=== PATIENT | male | born 1945 | race Caucasian/White ===

== ENCOUNTER 2017-12-26 10:28 | Day surgery (SDC) | payer MEDICARE, BC ==
[~2017-12-26] VITALS: Ht 172.7 cm; Wt 94.1 kg
[~2017-12-26 10:28] MED LIST: ABAC300; ACID REDUCER20 MG PO; ALPR.5 PO; Abilify2 MG PO; Abilify5 MG PO; BECL25NI; BRIM.15SO BOTHEYES; BRIM.15SO OD; BUPR150ER PO; BUPR75; CEFP500 PO; CLON1 PO; Cialis2.5 MG; DICY20 PO; DIPATR PO; FLUSAL2505 INH; Flomax0.4 MG; GABA100 PO; GUANFACINE; GUANFACINE PO; METHOTREXA25 MG/1 M8 IM; METO10 PO; MIRT30 PO; NEBI5 PO; PREG150 PO; PRIM50 PO; PROM25 PO; SELENIUM SUL; TIMO.25OPS OU; TRAACE PO; TRAM50 PO
== END 2017-12-26 12:48 | disposition home or self-care (01) ==
LOC: ORSCSDS 10:28
PROVIDERS: Student in an Organized Health Care Education/Training Program
PROC: 0DB48ZX Excision of Esophagogastric Junction, Via Natural or Artificial Opening Endoscopic, Diagnostic (ICD-10-PCS; principal; 2017-12-26 11:45)
PROC: 0DB68ZX Excision of Stomach, Via Natural or Artificial Opening Endoscopic, Diagnostic (ICD-10-PCS; principal; 2017-12-26 11:45)
DX: K21.9 Gastro-esophageal reflux disease without esophagitis (principal); R13.10 Dysphagia, unspecified; K29.70 Gastritis, unspecified, without bleeding; K44.9 Diaphragmatic hernia without obstruction or gangrene; I10 Essential (primary) hypertension; J44.9 Chronic obstructive pulmonary disease, unspecified; Z99.81 Dependence on supplemental oxygen; Z87.891 Personal history of nicotine dependence; Z79.899 Other long term (current) drug therapy
CPT/HCPCS: 88305; 88312; 88342

== ENCOUNTER 2018-09-26 13:36 | Emergency (ER) | payer MEDICARE, BC ==
[~2018-09-26] VITALS: Ht 172.7 cm; Wt 96.2 kg
[2018-09-26 14:29] LABS: BASOPHILS ABSOLUTE AUTO 0.07 K/mm3 (0.00-0.23); BASOPHILS PERCENT AUTO 1 % (0-2); EOSINOPHILS ABSOLUTE AUTO 0.14 K/mm3 (0.00-0.68); EOSINOPHILS PERCENT AUTO 1 % (0-6); Hematocrit 50.4 % (37.0-53.0); Hemoglobin 16.7 g/dL (13.5-17.5); IMMATURE GRAN ABSOLUTE AUTO 0.03 K/mm3 (0.00-0.10); IMMATURE GRAN PERCENT AUTO 0 % (0-1); LYMPHOCYTES ABSOLUTE AUTO 1.24 K/mm3 (0.84-5.20); LYMPHOCYTES PERCENT AUTO 11 % (21-46); MONOCYTES ABSOLUTE AUTO 0.76 K/mm3 (0.16-1.47); MONOCYTES PERCENT AUTO 7 % (4-13); Mean Corpuscular HGB 33.4 pg (26.0-34.0); Mean Corpuscular HGB Conc 33.1 g/dL (31.5-36.5); Mean Corpuscular Volume 101 fL (80-100); Mean Platelet Volume 9.7 fL (9.1-12.4); NEUTROPHILS ABSOLUTE AUTO 9.07 K/mm3 (1.96-9.15); NEUTROPHILS PERCENT AUTO 80 % (41-73); Platelet Count 242 K/mm3 (150-400); RDW Coefficient Variation 13.3 % (11.7-14.2); RDW Standard Deviation 50.4 fL (35.1-46.3); White Blood Cell Count 11.31 K/mm3 (4.00-11.30)
[2018-09-26 14:36] LABS: Alanine Aminotransfer (ALT/SGP 32 U/L (12-78); Albumin, Blood 4.2 g/dL (3.4-5.0); Alk Phos 86 U/L (50-136); Anion Gap 11 mmol/L (6-16); Aspartate Aminotrans (AST/SGOT 25 U/L (12-37); Bilirubin, Total 0.4 mg/dL (0.1-1.0); Blood Urea Nitrogen 12 mg/dL (8-24); Bun/Creatinine Ratio 14.4 (12.0-20.0); CO2, Blood 21 mmol/L (21-32); Calcium, Blood 9.1 mg/dL (8.5-10.1); Chloride, Blood 111 mmol/L (98-108); Creatinine, Blood 0.83 mg/dL (0.60-1.20); Globulin, Blood 4.2 g/dL (2.2-4.0); Glomerular Filtration Rate >60 (60-); Glucose, Blood 100 mg/dL (70-99); Potassium, Blood 3.7 mmol/L (3.5-5.5); Sodium, Blood 143 mmol/L (136-145); Total Protein, Blood 8.4 g/dL (6.4-8.2)
== END 2018-09-26 17:14 | disposition home or self-care (01) ==
LOC: ER 13:36
PROVIDERS: Physician Assistant
DX: K22.0 Achalasia of cardia (principal); Z88.8 Allergy status to other drugs, medicaments and biological substances; Z79.899 Other long term (current) drug therapy; I10 Essential (primary) hypertension; F41.9 Anxiety disorder, unspecified; F32.9 Major depressive disorder, single episode, unspecified
CPT/HCPCS: 36415; 80053; 83690; 85025; 96360; 96361; 99284-25; J7120

== ENCOUNTER 2018-09-27 14:44 | Emergency (ER) | payer MEDICARE, BC ==
[~2018-09-27] VITALS: Ht 172.7 cm; Wt 96.2 kg
== END 2018-09-27 17:21 | disposition home or self-care (01) ==
LOC: ER 14:44
DX: K22.0 Achalasia of cardia (principal); E86.0 Dehydration; I10 Essential (primary) hypertension; F41.9 Anxiety disorder, unspecified; F32.9 Major depressive disorder, single episode, unspecified; I47.2 Ventricular tachycardia; Z87.891 Personal history of nicotine dependence; Z79.899 Other long term (current) drug therapy; Z88.8 Allergy status to other drugs, medicaments and biological substances
CPT/HCPCS: 96361; 96374; 99281-25; J7120

== ENCOUNTER 2018-09-28 11:45 | Emergency (ER) | payer MEDICARE, BC ==
[~2018-09-28] VITALS: Ht 172.7 cm; Wt 96.2 kg
== END 2018-09-28 14:42 | disposition home or self-care (01) ==
LOC: ER 11:45
DX: R19.8 Other specified symptoms and signs involving the digestive system and abdomen (principal); Z88.8 Allergy status to other drugs, medicaments and biological substances; Z79.899 Other long term (current) drug therapy; I10 Essential (primary) hypertension; F41.9 Anxiety disorder, unspecified; F32.9 Major depressive disorder, single episode, unspecified; Z87.891 Personal history of nicotine dependence
CPT/HCPCS: 96361; 96374; J7120

== ENCOUNTER 2019-04-19 09:36 | Emergency (ER) | payer MEDICARE, BC ==
[~2019-04-19] VITALS: Ht 170.2 cm; Wt 91.6 kg
[2019-04-19 10:22] LABS: BASOPHILS ABSOLUTE AUTO 0.05 K/mm3 (0.00-0.23); BASOPHILS PERCENT AUTO 0 % (0-2); EOSINOPHILS ABSOLUTE AUTO 0.05 K/mm3 (0.00-0.68); EOSINOPHILS PERCENT AUTO 0 % (0-6); Hematocrit 48.3 % (37.0-53.0); Hemoglobin 16.2 g/dL (13.5-17.5); IMMATURE GRAN ABSOLUTE AUTO 0.05 K/mm3 (0.00-0.10); IMMATURE GRAN PERCENT AUTO 0 % (0-1); LYMPHOCYTES ABSOLUTE AUTO 1.14 K/mm3 (0.84-5.20); LYMPHOCYTES PERCENT AUTO 9 % (21-46); MONOCYTES ABSOLUTE AUTO 0.69 K/mm3 (0.16-1.47); MONOCYTES PERCENT AUTO 6 % (4-13); Mean Corpuscular HGB 32.7 pg (26.0-34.0); Mean Corpuscular HGB Conc 33.5 g/dL (31.5-36.5); Mean Corpuscular Volume 98 fL (80-100); Mean Platelet Volume 10.2 fL (9.1-12.4); NEUTROPHILS ABSOLUTE AUTO 10.27 K/mm3 (1.96-9.15); NEUTROPHILS PERCENT AUTO 84 % (41-73); Platelet Count 253 K/mm3 (150-400); RDW Coefficient Variation 13.4 % (11.7-14.2); RDW Standard Deviation 48.2 fL (35.1-46.3); Red Blood Cell Count 4.95 M/mm3 (4.30-5.90); White Blood Cell Count 12.25 K/mm3 (4.00-11.30)
[2019-04-19 10:42] LABS: Alanine Aminotransfer (ALT/SGP 43 U/L (12-78); Albumin, Blood 3.9 g/dL (3.4-5.0); Albumin/Globulin Ratio 0.9 (0.8-1.8); Alk Phos 86 U/L (50-136); Anion Gap 10 mmol/L (6-16); Aspartate Aminotrans (AST/SGOT 34 U/L (12-37); Bilirubin, Total 0.5 mg/dL (0.1-1.0); Blood Urea Nitrogen 16 mg/dL (8-24); Bun/Creatinine Ratio 22.7 (12.0-20.0); CO2, Blood 22 mmol/L (21-32); Calcium, Blood 9.3 mg/dL (8.5-10.1); Chloride, Blood 112 mmol/L (98-108); Globulin, Blood 4.3 g/dL (2.2-4.0); Glomerular Filtration Rate >60 (60-); Glucose, Blood 121 mg/dL (70-99); Potassium, Blood 3.7 mmol/L (3.5-5.5); Sodium, Blood 144 mmol/L (136-145); Total Protein, Blood 8.2 g/dL (6.4-8.2)
[2019-04-20] MEDS ORDERED: PRAMIPEXOLE D0.25 M1 PO (11:22)
[2019-04-20] MEDS ORDERED: Carbidopa-Levo1 EAC1 PO (11:22)
[2019-04-20] MEDS ORDERED: MODAFINIL200 MG PO (11:23)
== END 2019-04-19 16:55 | disposition home or self-care (01) ==
LOC: ER 09:36
PROVIDERS: Physician Assistant
DX: K22.0 Achalasia of cardia (principal); E86.0 Dehydration; I10 Essential (primary) hypertension; F41.9 Anxiety disorder, unspecified; F32.9 Major depressive disorder, single episode, unspecified; Z88.8 Allergy status to other drugs, medicaments and biological substances; Z79.899 Other long term (current) drug therapy; Z87.891 Personal history of nicotine dependence
CPT/HCPCS: 36415; 80053; 83690; 85025; C9113; J2060; J7030

== ENCOUNTER 2019-04-20 11:15 | Observation (INO) | payer MEDICARE, BC ==
[~2019-04-20] VITALS: Ht 170.2 cm; Wt 92.0 kg
[2019-04-20] MEDS ORDERED: Carbidopa-Levo1 EAC1 PO (11:22)
[2019-04-20] MEDS ORDERED: PRAMIPEXOLE D0.25 M1 PO (11:22)
[2019-04-20] MEDS ORDERED: MODAFINIL200 MG PO (11:23)
--- NOTE | 2019-04-20 15:46 | NUR ---
History, Chart, Medications and Allergies reviewed before start of procedure.Lungs clear T/O to Auscultation. Patient confirms NPO status and agrees with scheduled surgery.
--- NOTE | 2019-04-20 15:58 | NUR ---
04/20/19 1558 ALAYNA GIORDANO History, Chart, Medications and Allergies reviewed before start of procedure. 3-LEAD EKG REVIEWED WITH PHYSICIAN PRIOR TO START OF PROCEDURE. O2 VIA N/C INTACT THROUGHOUT SEDATION/PROCEDURE. MONITOR INTACT WITH CONTINUOUS PULSE OXIMETRY AND INTERMITTENT BP. PATIENT DETERMINED TO BE ASA APPROPRIATE FOR PROPOFOL SEDATION PRIOR TO START OF PROCEDURE BY DR. BEE.
--- NOTE | 2019-04-20 19:10 | NUR ---
Assumed Care at 1900. Pt in room with day oral and maxillofacial surgery resident at bedside. Bedside report obtained. Pt able to stand transfer to PCU bed with moderate assistance. Parkinsons at baseline. uses cane. VSS. Alert and oriented. Afib in 70's. See admission assessment for detailed systems assessment. Pt denies SOB, palpitations, dizziness at this time. Educated on afib symptoms. Pt conversing appropraitely. Pt compliant with NPO status. NO NG tube upon arrival. MD to place tomorrow. Pt is s/p EGD which found large food bolus in esophagus. Plan is for repeat EGD tomorrow d/t pt converted into AFIB. No acute concerns to note. Pt denies futher needs at this time. Calm, and cooperative with care. In no apparent sign of distress.
[2019-04-21 04:21] LABS: BASOPHILS ABSOLUTE AUTO 0.03 K/mm3 (0.00-0.23); BASOPHILS PERCENT AUTO 0 % (0-2); EOSINOPHILS ABSOLUTE AUTO 0.11 K/mm3 (0.00-0.68); EOSINOPHILS PERCENT AUTO 1 % (0-6); Hematocrit 41.8 % (37.0-53.0); Hemoglobin 13.4 g/dL (13.5-17.5); IMMATURE GRAN ABSOLUTE AUTO 0.04 K/mm3 (0.00-0.10); IMMATURE GRAN PERCENT AUTO 0 % (0-1); LYMPHOCYTES ABSOLUTE AUTO 1.02 K/mm3 (0.84-5.20); LYMPHOCYTES PERCENT AUTO 9 % (21-46); MONOCYTES ABSOLUTE AUTO 0.83 K/mm3 (0.16-1.47); MONOCYTES PERCENT AUTO 7 % (4-13); Mean Corpuscular HGB Conc 32.1 g/dL (31.5-36.5); Mean Corpuscular Volume 100 fL (80-100); Mean Platelet Volume 10.4 fL (9.1-12.4); NEUTROPHILS ABSOLUTE AUTO 9.21 K/mm3 (1.96-9.15); NEUTROPHILS PERCENT AUTO 82 % (41-73); Platelet Count 216 K/mm3 (150-400); RDW Coefficient Variation 13.8 % (11.7-14.2); RDW Standard Deviation 50.4 fL (35.1-46.3); Red Blood Cell Count 4.19 M/mm3 (4.30-5.90); White Blood Cell Count 11.24 K/mm3 (4.00-11.30)
--- NOTE | 2019-04-21 04:21 | NUR ---
Shift Summary Pt remains alert and oriented, VSS, suction set up at bedside and pt using suction PRN. NS infusing per orders at 75 mls/hr. Pt converted around 0300 from afib with rates 60-70 to Sinus raina in 50's, at times, pt HR down to 45 bpm. Sleeping during bradycardia. Pt denies SOB, dizziness, lightheadedness. Ambulates with one moderate assist to BSC. At baseline pt walks with cane. 1 small liquid BM tonight. Voiding with urinal in bed. Held all PO medications per orders d/t absence of NG tube - to be placed by phsycian today. Plan is also for EGD today. Will continue to monitor.
[2019-04-21 04:43] LABS: Anion Gap 9 mmol/L (6-16); Blood Urea Nitrogen 20 mg/dL (8-24); CO2, Blood 23 mmol/L (21-32); Calcium, Blood 8.8 mg/dL (8.5-10.1); Chloride, Blood 118 mmol/L (98-108); Creatinine, Blood 0.77 mg/dL (0.60-1.20); Glomerular Filtration Rate >60 (60-); Glucose, Blood 91 mg/dL (70-99); Sodium, Blood 150 mmol/L (136-145)
--- NOTE | 2019-04-21 10:21 | NUR ---
LATE ENTRY 0800, REPORT RECEIVED FROM MARY DE LA GARZA, PT IS AWAKE, ALERT, ORIENTED, [place], ABLE TO MAKE NEEDS KNOWN. HRR, SINUS BRADYCARDIA NOTED, PT ASYMPTOMATIC. LUNG SOUNDS CLEAR TO AUSCULTATION, NO C/O SOB OR CHEST PAIN. STABLE OXYGEN SATURATION ON ROOM AIR. ABDOMEN ROUND, TENDER IN UPPER QUADRANTS, C/O ACID PAIN 7/10. PT STRICT NPO, USING GREEN SWAB STICKS FOR MOISTENING ORAL MUCOUS MEMBRANES. VOIDING WITHOUT DIFFICULTY. IV ON RIGHT AC, W/O REDNESS, SWELLING, OR TENDERNESS. PT AMBULATES WITH CANE, INSTRUCTED TO CALL FOR ASSISTANCE WHEN NEEDING TO GET OUT OF BED. CALL LIGHT WITHIN REACH, BED IN LOW POSITION.
--- NOTE | 2019-04-21 11:27 | NUR ---
PT STATES THAT NITROGLYCERIN DID NOT HELP RELIEVE ABDOMINAL PAIN, DR. HARDY NOTIFIED, PHONE ORDER RECEIVED FOR PEPCID 20MG IV ONCE.
--- NOTE | 2019-04-21 15:00 | NUR ---
Advance directive education/ spiritual care visit conducted. Patient states that he has no interest in advance directive education. Patient does share about his of 17 years, about his spiritual journey and about his medical issues. Patient asks me to provide prayer even though I am not part of his [employer] belief system. I gladly provide prayer for patient and his upcoming procedure. Patient verbalizes gratitude. I will continue to remain available to patient and family.
--- NOTE | 2019-04-21 15:26 | NUR ---
PT C/O HEADACHE, 06/04, BP 150/67, PT MEDICATED WITH ACETAMINOPHEN 650MG KS.
--- NOTE | 2019-04-21 17:38 | NUR ---
PT TRANSFERRED TO DAY SURGERY VIA [facility].
--- NOTE | 2019-04-21 17:49 | NUR ---
BROUGHT TO [facility] ADMISSION TO UNIT STARTED.
--- NOTE | 2019-04-21 18:43 | NUR ---
PT ADHERED TO NPO STATUS FOR EGD PROCEDURE. PT HAD 7/10 BURNING UPPER ABDOMINAL DISCOMFORT. PT RECEIVED DOSE OF PEPCID IV WITH DECREASE IN DISCOMFORT TO 5/10. PT ALSO RECEIVED NITROGLYCERIN TABLET FOR ACHALASIA TO RELAX LOWER ESOPHAGEAL SPHINCTER X 2 PER MD ORDER. PT WAS HYPERTENSIVE, ACCOMPANIED BY HEADACHES, PRN ORDER FOR HYDRALAZINE RECEIVED AND GIVEN, TYLENOL SUPPOSITORY GIVEN WITH FULL RELIEF OF HEADACHE NOTED. PT TRANSPORTED TO DAYSURGERY, STILL IN PROCEDURE AT THIS WRITING.
--- NOTE | 2019-04-21 18:54 | NUR ---
04/21/191853 Dejah Judd CASE WITH DR. CULVER. IN OR 2 WITH GENRAL ANETHESIA
--- NOTE | 2019-04-21 21:28 | NUR ---
MARCUS FROM DAY SURGERY CALLED TO REPORT PATIENT WAS TRANSFERRED TO ICU FOR RECOVERY; PATIENT HAD GENERAL ANESTHESIA; FLUID BOLUS GIVEN. WILL CONTINUE TO MONITOR AND ASSESS UNTIL END OF SHIFT.
--- NOTE | 2019-04-21 21:33 | NUR ---
RECIEVED 74 YEAR OLD MALE FROM OR TO ICU 15,PER MATT FOR RECOVERY REPORT RECIEVED FROM PETRA HERNANDEZ AND DR CULVER. ARRIVES ON NON REBREATHER AT 15L/M SPO2 98% LUNGS SOUND COARSE RESPIRATIONS REGULAR AND EASY RATE 18-20 ABLE TO CDB AND FOLLOWS INSTRUCTIONS AKIN DENIES DISCOMFORT DR HAYLEY TUBBS TO SEE PATIENT. DISCUSSED PLAN. ABDOMEN SOFT WITH BOWEL SOUNDS FOUR QUADS. CONTINUE TO MONITOR AND GIVE REPORT TO RECIEVING RN IN PCU
--- NOTE | 2019-04-21 22:15 | NUR ---
ASSUMED CARE OF PATIENT AT [facility] 2210 FROM OPERATIONAL INTELLIGENCE ANALYST TANO. CHILO S/P EGD W/ GENERAL ANESTHESIA. PATIENT ALERT AND ORIENTED X4; WEAK. PATIENT DENIES PAIN, NUMBNESS, TINGLING, DIZZINESS AND NAUSEA. PATIENT INCONTINENT OF URINE AND STOOL UPON ARRIVAL TO UNIT; ATTENDS IN PLACE. PATIENT REPORTS HE IS ABLE TO CALL STAFF WHEN HE NEEDS TO USE THE BATHROOM; REPORTS HE CANNOT GO ON A BEDPAN OR BEDSIDE COMMODE; USES CAN AT BASELINE; PATIENT'S 2100 MEDS TO BE HELD DUE TO NO NG TUBE IN PLACE; PATIENT UNABLE TO TAKE SOLIDS AT THIS TIME; CLEAR LIQUID DIET ORDERED; SWALL EVAL TO BE DONE AT BEDSIDE. DEXTROSE INFUSING PER ORDER. POST OP VS TO BE DONE AFTER PATIENT CHANGED. NSR W/ PACS ON TELE; OXYGEN SATURATION ABOVE 90% ON 2LPM VIA NC. PATIENT CURRENTLY RESTING IN BED; CALL LIGHT IN REACH; BED IN LOWEST POSISTION; BED ALARM ON; WILL CONITNUE TO MONITOR AND ASSESS UNTIL END OF SHIFT.
--- NOTE | 2019-04-21 22:35 | NUR ---
PATIENT HYPERTENSIVE UPON ARRIVAL TO UNIT; MEDICATED WITH PRN IV HYDRALAZINE
--- NOTE | 2019-04-21 23:22 | NUR ---
EMESIS; PATIENT AMBULATED TO BATHROOM WITH 2 ASSIST AND CANE TO HAVE BM; PATIENT PASSED BEDSIDE SWALLOW; GIVEN APPLE JUICE; CLEAR LIQUID DIET WAS ORDERED FOR PATIENT TONIGHT. WHILE PATIENT WAS IN BATHROOM HE "COUGHED" UP SOME BLOODY SPUTUM SMALL AMOUNT. PATIENT REPORTS HE DID NOT VOMIT; PATIENT PLACED NPO.
--- NOTE | 2019-04-22 00:30 | NUR ---
BLOOD PRESSURE IMPROVED TO 143/67; OXYGEN SATURATION ABOVE 90% ON ROOM AIR.
[2019-04-22 04:10] LABS: BASOPHILS ABSOLUTE AUTO 0.03 K/mm3 (0.00-0.23); BASOPHILS PERCENT AUTO 0 % (0-2); EOSINOPHILS ABSOLUTE AUTO 0.01 K/mm3 (0.00-0.68); EOSINOPHILS PERCENT AUTO 0 % (0-6); Hematocrit 39.9 % (37.0-53.0); IMMATURE GRAN ABSOLUTE AUTO 0.04 K/mm3 (0.00-0.10); IMMATURE GRAN PERCENT AUTO 0 % (0-1); LYMPHOCYTES ABSOLUTE AUTO 0.78 K/mm3 (0.84-5.20); LYMPHOCYTES PERCENT AUTO 8 % (21-46); MONOCYTES ABSOLUTE AUTO 0.53 K/mm3 (0.16-1.47); MONOCYTES PERCENT AUTO 6 % (4-13); Mean Corpuscular HGB 32.6 pg (26.0-34.0); Mean Corpuscular HGB Conc 32.6 g/dL (31.5-36.5); Mean Corpuscular Volume 100 fL (80-100); Mean Platelet Volume 10.5 fL (9.1-12.4); NEUTROPHILS ABSOLUTE AUTO 7.96 K/mm3 (1.96-9.15); NEUTROPHILS PERCENT AUTO 85 % (41-73); Platelet Count 195 K/mm3 (150-400); RDW Coefficient Variation 13.6 % (11.7-14.2); RDW Standard Deviation 50.9 fL (35.1-46.3); Red Blood Cell Count 3.99 M/mm3 (4.30-5.90); White Blood Cell Count 9.35 K/mm3 (4.00-11.30)
[2019-04-22 04:26] LABS: Anion Gap 6 mmol/L (6-16); Blood Urea Nitrogen 18 mg/dL (8-24); Bun/Creatinine Ratio 22.9 (12.0-20.0); CO2, Blood 25 mmol/L (21-32); Calcium, Blood 8.3 mg/dL (8.5-10.1); Chloride, Blood 115 mmol/L (98-108); Creatinine, Blood 0.79 mg/dL (0.60-1.20); Glomerular Filtration Rate >60 (60-); Glucose, Blood 122 mg/dL (70-99); Potassium, Blood 2.8 mmol/L (3.5-5.5); Sodium, Blood 146 mmol/L (136-145)
--- NOTE | 2019-04-22 05:40 | NUR ---
BLOOD PRESSURE IMPROVED. PATIENT COMPLAINED OF HEADACHE; REFUSED CT TYELNOL; PATIENT GIVEN COOL WASH CLOTH AND ICE PACK TO BACK; GOOD RESULTS. CALLED DR. DAWKINS TO REPORT DROP IN POTASSIUM FROM 3.0 TO 2.8; ORDERS RECIEVED. NO OTHER ACUTE CHANGES TO REPORT. WILL CONTINUE TO MONITOR AND ASSESS UNTIL END OF SHIFT.
[2019-04-22] MEDS ORDERED: POTA20LUD PO (09:27)
--- NOTE | 2019-04-22 10:23 | NUR ---
Patient is in good spirits today and excited to go home. Patient tells me of the success of the procedure and about how his heart stayed in rhythm. He shares about being able to swallow and have a liquid breakfast. I celebrate with patient and provide a prayer blessing over him as he moves toward DC.
--- NOTE | 2019-04-22 11:40 | NUR ---
DISCHARGE INSTRUCTIONS GONE OVER WITH PT AND FAMILY. INSTRUCTED PT ON NEW MEDICATION AND HOW TO OBTAIN IT. PT INSTRUCTED ON DIET TO FOLLOW POST DISCHARGE. INSTRUCTED ON IMPORTANCE OF FOLLOWUP VISITS WITH [facility] AN OUTPATIENT. PT STATED UNDERSTANDING.
--- NOTE | 2019-04-23 14:51 | NUR ---
FIXED CHARTING FOR MARCUS BY GETTING TIME FROM ANNESTHESIA RECORD.
== END 2019-04-22 10:53 | disposition home or self-care (01) ==
LOC: ER 11:15 → PCU 11:16 → MEDS 11:16 → PCU 18:49
PROVIDERS: Internal Medicine; ADMIT Internal Medicine
DX: T18.128A Food in esophagus causing other injury, initial encounter (principal); K22.0 Achalasia of cardia; E87.6 Hypokalemia; E86.0 Dehydration; K21.9 Gastro-esophageal reflux disease without esophagitis; F41.9 Anxiety disorder, unspecified; F32.9 Major depressive disorder, single episode, unspecified; G20 Parkinson's disease; J44.9 Chronic obstructive pulmonary disease, unspecified; E66.01 Morbid (severe) obesity due to excess calories; Z88.8 Allergy status to other drugs, medicaments and biological substances; Z79.899 Other long term (current) drug therapy
CPT/HCPCS: 36415; 71045; 80048; 84484; 85025; 93005; 93010; 96360; 96361; 96375; 96376; 99285-25; C9113; G0378; J0360; J1100; J1610; J2001; J2250; J2405; J2704; J3480; J7030; J7070; J7120

== ENCOUNTER 2020-01-18 10:15 | Inpatient (IN) | payer MEDICARE, BC ==
[~2020-01-18] VITALS: Ht 172.7 cm; Wt 81.7 kg
[~2020-01-18 10:15] MED LIST changes: +Carbidopa-Levo1 EAC1 PO; +MODAFINIL200 MG PT; +POTA20LUD PO; +PRAMIPEXOLE D0.25 M1 PT
[2020-01-18 10:46] LABS: BASOPHILS ABSOLUTE AUTO 0.13 K/mm3 (0.00-0.23); BASOPHILS PERCENT AUTO 1 % (0-2); EOSINOPHILS ABSOLUTE AUTO 0.14 K/mm3 (0.00-0.68); EOSINOPHILS PERCENT AUTO 1 % (0-6); Hemoglobin 18.5 g/dL (13.5-17.5); IMMATURE GRAN ABSOLUTE AUTO 0.09 K/mm3 (0.00-0.10); IMMATURE GRAN PERCENT AUTO 0 % (0-1); LYMPHOCYTES ABSOLUTE AUTO 1.54 K/mm3 (0.84-5.20); LYMPHOCYTES PERCENT AUTO 8 % (21-46); MONOCYTES ABSOLUTE AUTO 1.49 K/mm3 (0.16-1.47); MONOCYTES PERCENT AUTO 7 % (4-13); Mean Corpuscular HGB 34.1 pg (26.0-34.0); Mean Corpuscular HGB Conc 32.2 g/dL (31.5-36.5); Mean Corpuscular Volume 106 fL (80-100); Mean Platelet Volume 11.1 fL (9.1-12.4); NEUTROPHILS ABSOLUTE AUTO 16.82 K/mm3 (1.96-9.15); NEUTROPHILS PERCENT AUTO 83 % (41-73); Platelet Count 376 K/mm3 (150-400); RDW Coefficient Variation 14.6 % (11.7-14.2); RDW Standard Deviation 58.9 fL (35.1-46.3); Red Blood Cell Count 5.43 M/mm3 (4.30-5.90); White Blood Cell Count 20.21 K/mm3 (4.00-11.30)
[2020-01-18 10:51] LABS: Hematocrit 57.5 % (37.0-53.0)
[2020-01-18 11:18] LABS: Alanine Aminotransfer (ALT/SGP 56 U/L (12-78); Albumin, Blood 3.6 g/dL (3.4-5.0); Albumin/Globulin Ratio 0.7 (0.8-1.8); Alk Phos 124 U/L (50-136); Anion Gap 12 mmol/L (6-16); Aspartate Aminotrans (AST/SGOT 59 U/L (12-37); Bilirubin, Total 1.4 mg/dL (0.1-1.0); Blood Urea Nitrogen 53 mg/dL (8-24); Bun/Creatinine Ratio 43.4 (12.0-20.0); CO2, Blood 23 mmol/L (21-32); Calcium, Blood 10.1 mg/dL (8.5-10.1); Chloride, Blood 125 mmol/L (98-108); Creatinine, Blood 1.22 mg/dL (0.60-1.20); Glomerular Filtration Rate >60 (60-); Glucose, Blood 149 mg/dL (70-99); Potassium, Blood 3.1 mmol/L (3.5-5.5); Sodium, Blood 160 mmol/L (136-145); Total Protein, Blood 8.6 g/dL (6.4-8.2)
[2020-01-18] MEDS ORDERED: ESZOPICLONE3 MG PT (12:04)
[2020-01-18] MEDS ORDERED: CARBIDOPA-LEVO1 EA15 PT (12:04)
[2020-01-18] MEDS ORDERED: BRIMONIDINE TART5 M2 BOTHEYES (12:04)
[2020-01-18] MEDS ORDERED: ABILIFY5 MG PT (12:05)
[2020-01-18] MEDS ORDERED: Primidone50 MG PT (12:05)
[2020-01-18] MEDS ORDERED: PREGABALIN300 MG PT (12:06)
[2020-01-18] MEDS ORDERED: BUPROPION XL150 M1 PO (12:09)
[2020-01-18 17:18] LABS: Influenza A, PCR Negative (NEGATIVE); Influenza B, PCR Negative (NEGATIVE); Resp Syncytial Virus, PCR Negative (NEGATIVE); SARS-Cov-2 (COVID-19) PCR, MMC Negative (NEGATIVE)
--- NOTE | 2020-01-18 18:28 | NUR ---
called to cancel procedure due to busy schedule in or, informed pt will wait to see when it can be rescheduled, said to hold him NPO, pt coopeartive with care, family in to visit, no further chest pain, medicated as prescribed, saline locked, 2L via nc states he feels better with the 02 on, will continue to monitor and treat until share bsr
[2020-01-18 19:02] LABS: Anion Gap 5 mmol/L (6-16); Blood Urea Nitrogen 46 mg/dL (8-24); Bun/Creatinine Ratio 48.7 (12.0-20.0); CO2, Blood 27 mmol/L (21-32); Calcium, Blood 9.5 mg/dL (8.5-10.1); Chloride, Blood 126 mmol/L (98-108); Creatinine, Blood 0.95 mg/dL (0.60-1.20); Glomerular Filtration Rate >60 (60-); Glucose, Blood 131 mg/dL (70-99); Potassium, Blood 3.6 mmol/L (3.5-5.5); Sodium, Blood 158 mmol/L (136-145)
[2020-01-19 02:43] LABS: BASOPHILS PERCENT AUTO 1 % (0-2); EOSINOPHILS ABSOLUTE AUTO 0.55 K/mm3 (0.00-0.68); EOSINOPHILS PERCENT AUTO 4 % (0-6); Hematocrit 49.1 % (37.0-53.0); Hemoglobin 15.6 g/dL (13.5-17.5); IMMATURE GRAN ABSOLUTE AUTO 0.05 K/mm3 (0.00-0.10); IMMATURE GRAN PERCENT AUTO 0 % (0-1); LYMPHOCYTES ABSOLUTE AUTO 1.82 K/mm3 (0.84-5.20); LYMPHOCYTES PERCENT AUTO 14 % (21-46); MONOCYTES ABSOLUTE AUTO 0.98 K/mm3 (0.16-1.47); MONOCYTES PERCENT AUTO 8 % (4-13); Mean Corpuscular HGB 34.3 pg (26.0-34.0); Mean Corpuscular HGB Conc 31.8 g/dL (31.5-36.5); Mean Corpuscular Volume 108 fL (80-100); NEUTROPHILS ABSOLUTE AUTO 9.34 K/mm3 (1.96-9.15); NEUTROPHILS PERCENT AUTO 73 % (41-73); Platelet Count 274 K/mm3 (150-400); RDW Coefficient Variation 14.6 % (11.7-14.2); RDW Standard Deviation 59.7 fL (35.1-46.3); Red Blood Cell Count 4.55 M/mm3 (4.30-5.90); White Blood Cell Count 12.84 K/mm3 (4.00-11.30)
[2020-01-19 03:03] LABS: Alanine Aminotransfer (ALT/SGP 45 U/L (12-78); Albumin, Blood 2.9 g/dL (3.4-5.0); Albumin/Globulin Ratio 0.7 (0.8-1.8); Alk Phos 101 U/L (50-136); Anion Gap 4 mmol/L (6-16); Aspartate Aminotrans (AST/SGOT 36 U/L (12-37); Bilirubin, Total 0.8 mg/dL (0.1-1.0); Blood Urea Nitrogen 40 mg/dL (8-24); CO2, Blood 30 mmol/L (21-32); Calcium, Blood 9.4 mg/dL (8.5-10.1); Chloride, Blood 125 mmol/L (98-108); Creatinine, Blood 0.89 mg/dL (0.60-1.20); Globulin, Blood 3.9 g/dL (2.2-4.0); Glomerular Filtration Rate >60 (60-); Glucose, Blood 145 mg/dL (70-99); Potassium, Blood 3.1 mmol/L (3.5-5.5); Sodium, Blood 159 mmol/L (136-145); Total Protein, Blood 6.8 g/dL (6.4-8.2)
--- NOTE | 2020-01-19 06:34 | NUR ---
SIGNAL WIRER SUMMARY PT A/O X4, MEDICATED FOR PAIN A FEW TIMES TONIGHT FOR GENERALIZED PAIN. PT DENIES CHEST PAIN. NPO PER ORDERS. NO ACUTE CHANGES. WILL GIVE REPORT TO ONCOMING RN. SLEPT WELL TONIGHT.
[2020-01-19 14:19] LABS: Anion Gap 9 mmol/L (6-16); Blood Urea Nitrogen 31 mg/dL (8-24); Bun/Creatinine Ratio 34.4 (12.0-20.0); CO2, Blood 26 mmol/L (21-32); Calcium, Blood 9.5 mg/dL (8.5-10.1); Chloride, Blood 124 mmol/L (98-108); Glomerular Filtration Rate >60 (60-); Glucose, Blood 107 mg/dL (70-99); Sodium, Blood 159 mmol/L (136-145)
--- NOTE | 2020-01-19 15:00 | NUR ---
01/19/201499 Anatoly Sow History, Chart, Medications and Allergies reviewed before start of procedure.MONITOR INTACT WITH CONTINUOUS PULSE OXIMETRY AND INTERMITTENT BP.3-LEAD EKG REVIEWED WITH PHYSICIAN PRIOR TO START OF PROCEDURE.O2 VIA N/C INTACT THROUGHOUT SEDATION/PROCEDURE. See Anesthesia record.
--- NOTE | 2020-01-19 17:59 | NUR ---
SHIFT SUMMARY PEG TUBE WAS PLACED THIS AFTERNOON AND MAY BE USED AT 2000 PER MD. THIS RN CALLED DR. BLANCO AND NOTIFIED HIM THAT TUBE COULD BE USED TONIGHT IF WANTED TO RESTART PT'S HOME MEDS AND START FEEDINGS. MEDS WERE STARTED AND DR. BLANCO SAID TO WAIT TIL AM TO START FEEDINGS WHEN PHOSPHORIC ACID SUPERVISOR HERE TO ORDER THEM. MEDICATED FOR ABOMINAL PAIN THIS EVENING AND PT REPORTS EFFECTIVE. PT HAD A SHOWER THIS AM AND SAT IN CHAIR FOR A BIT. NO ACUTE CHANGES. SUCTION AT BEDSIDE. CALL LIGHT IN REACH. WILL CONTINUE TO MONITOR AND REPORT TO ONCOMING RN.
[2020-01-20 05:27] LABS: Hematocrit 49.4 % (37.0-53.0); Hemoglobin 15.7 g/dL (13.5-17.5); Mean Corpuscular HGB 34.4 pg (26.0-34.0); Mean Corpuscular HGB Conc 31.8 g/dL (31.5-36.5); Mean Corpuscular Volume 108 fL (80-100); Mean Platelet Volume 11.8 fL (9.1-12.4); Platelet Count 291 K/mm3 (150-400); RDW Coefficient Variation 14.3 % (11.7-14.2); RDW Standard Deviation 58.8 fL (35.1-46.3); Red Blood Cell Count 4.57 M/mm3 (4.30-5.90); White Blood Cell Count 11.48 K/mm3 (4.00-11.30)
--- NOTE | 2020-01-20 05:44 | NUR ---
SHIFT SUMMARY- PT. A&O, COOPERATIVE WITH CARE. S/P PEG TUBE PLACEMENT. ADMINISTERED SCHEDULED MEDS VIA PT PER ORDER AFTER 1999. PT. TOLERATED WELL. C/O SOME ABD TENDERNESS AND ROBLES LAST NIGHT, MEDICATED PER EMAR WITH GOOD EFFECT. BS CHECK DONE RESULT WNL. PT. HAD NO ACUTE CHANGES TO CONDITION. VSS. CALL LIGHT WITHIN REACH AND SIDE RAILS UPX2. WILL CONT TO MONITOR.
[2020-01-20 05:45] LABS: Anion Gap 7 mmol/L (6-16); Blood Urea Nitrogen 29 mg/dL (8-24); Bun/Creatinine Ratio 29.7 (12.0-20.0); CO2, Blood 27 mmol/L (21-32); Calcium, Blood 9.2 mg/dL (8.5-10.1); Chloride, Blood 122 mmol/L (98-108); Creatinine, Blood 0.98 mg/dL (0.60-1.20); Glomerular Filtration Rate >60 (60-); Glucose, Blood 118 mg/dL (70-99); Sodium, Blood 156 mmol/L (136-145)
[2020-01-20] MEDS ORDERED: BUPR100 PT (15:07)
[2020-01-20] MEDS ORDERED: POTA20LUD PT (15:10)
--- NOTE | 2020-01-20 16:25 | NUR ---
DISCHARGE NOTE THIS RN REMOVED BOTH PT IV'S IN THE RIGHT FOREARM. THIS RN REVIEWED DC INSTRUCTIONS AND MEDICATIONS WITH PT AND WHO BOTH VERBALIZED UNDERSTANDING OF INSTRUCTIONS. PT AND DRESSED PT IN HOME CLOTHING. THIS RN PROVIDED A WHEELCHAIR FOR PT AND WHEELED PT OFF THE UNIT AT APPROXIMATELY 1610. PT AND HAD PT BELONGINGS UPON DC FROM UNIT.
== END 2020-01-20 16:11 | disposition home or self-care (01) | DRG 392 ==
LOC: ER 10:15 → MEDS 10:16 → ER 16:45 → MEDS 01-20 07:59
PROVIDERS: Emergency Medicine; Internal Medicine; Student in an Organized Health Care Education/Training Program; ADMIT Internal Medicine
PROC: 0DH63UZ Insertion of Feeding Device into Stomach, Percutaneous Approach (ICD-10-PCS; principal; 2020-01-20)
DX: K22.0 Achalasia of cardia (principal); N17.9 Acute kidney failure, unspecified; E87.0 Hyperosmolality and hypernatremia; R64 Cachexia; K22.2 Esophageal obstruction; G20 Parkinson's disease; I10 Essential (primary) hypertension; Z87.891 Personal history of nicotine dependence; E86.0 Dehydration; J44.9 Chronic obstructive pulmonary disease, unspecified; K21.9 Gastro-esophageal reflux disease without esophagitis; E87.6 Hypokalemia; R13.10 Dysphagia, unspecified; F98.8 Other specified behavioral and emotional disorders with onset usually occurring in childhood and adolescence
CPT/HCPCS: 0241U; 36415; 80048; 80053; 82947; 83735; 84100; 85025; 85027; 96361; 96372; 96374; 96375; 96376; 99284-25; C1769; C9113; G0378; J0690; J1650; J2001; J2250; J2405; J2704; J3010; J3480; J7070; J7120

== ENCOUNTER → 2020-03-08 | Outpatient (CLI) | payer MEDICARE, BC ==
[~2020-03-08] MED LIST changes: +ABILIFY5 MG PT; +BRIMONIDINE TART5 M2 BOTHEYES; +BUPR100 PT; +BUPROPION XL150 M1 PO; +CARBIDOPA-LEVO1 EA15 PT; +ESZOPICLONE3 MG PT; +POTA20LUD PT; +PREGABALIN300 MG PT; +Primidone50 MG PT
== END | disposition home or self-care (01) ==
LOC: PLD 07:36 → LAB SHORT 07:36
DX: L82.1 Other seborrheic keratosis (principal)
CPT/HCPCS: 88305

== ENCOUNTER 2021-09-16 13:40 | Inpatient (IN) | payer MEDICARE, BC ==
[~2021-09-16] VITALS: Ht 175.3 cm; Wt 104.8 kg
[2021-09-16 14:06] LABS: Hematocrit 32.8 % (37.0-53.0); Hemoglobin 11.8 g/dL (13.5-17.5); Mean Corpuscular HGB 34.1 pg (26.0-34.0); Mean Corpuscular Volume 95 fL (80-100); Mean Platelet Volume 11.1 fL (9.1-12.4); NRBC ABSOLUTE 0.03 K/mm3 (0.00-0.02); NRBC Auto 0.1 /100 WBC (0.0-0.2); Platelet Count 257 K/mm3 (150-400); RDW Coefficient Variation 14.5 % (11.7-14.2); RDW Standard Deviation 49.8 fL (35.1-46.3); Red Blood Cell Count 3.46 M/mm3 (4.30-5.90)
[2021-09-16 14:11] LABS: PCO2 Arterial 36.6 mmHg (35-45); PO2 Arterial 72.8 mmHg (80-100); pH Blood Arterial 7.39 (7.35-7.45)
[2021-09-16 14:15] LABS: White Blood Cell Count 58.12 K/mm3 (4.00-11.30)
[2021-09-16 14:28] LABS: Magnesium, Blood 2.3 mg/dL (1.6-2.4)
[2021-09-16 14:41] LABS: Albumin, Blood 2.4 g/dL (3.4-5.0); Albumin/Globulin Ratio 0.5 (0.8-1.8); Bilirubin, Total 0.5 mg/dL (0.1-1.0); Bun/Creatinine Ratio 64.8 (12.0-20.0); Calcium, Blood 9.1 mg/dL (8.5-10.1); Creatinine, Blood 0.6 mg/dL (0.60-1.20); Globulin, Blood 4.4 g/dL (2.2-4.0); Potassium, Blood 5.6 mmol/L (3.5-5.5); Total Protein, Blood 6.8 g/dL (6.4-8.2)
[2021-09-16 14:43] LABS: Source, Urine Foley catheter
[2021-09-16 15:34] LABS: Appearance, Urine Hazy (Clear); Bilirubin, Urine Neg (Neg); Blood, Urine 5+ (Neg); Color, Urine Yellow (P-Yellow); Glucose Qualitative, Urine Neg (Neg); Ketones, Urine Neg (Neg); Leukocyte Esterase, Urine 1+ (Neg); Nitrite, Urine Neg (Neg); Protein, Urine 2+ (Neg); Specific Gravity, Urine 1.015 (1.003-1.022); Urobilinogen, Urine NORM (Normal)
[2021-09-16 15:49] LABS: BAND PERCENT MAN 35 % (0-8); BASOPHILS PERCENT MAN 0 % (0-2); EOSINOPHILS PERCENT MAN 0 % (0-6); LYMPHOCYTES ABSOLUTE MAN 1.74 K/mm3 (0.84-5.20); LYMPHOCYTES PERCENT MAN 3 % (21-46); METAMYELOCYTE ABSOLUTE MAN 1.16 K/mm3 (0.00-0.00); METAMYELOCYTE PERCENT MAN 2 % (0-0); MONOCYTES ABSOLUTE MAN 1.74 K/mm3 (0.16-1.47); MONOCYTES PERCENT MAN 3 % (4-13); MYELOCYTE ABSOLUTE MAN 1.16 K/mm3 (0.00-0.00); MYELOCYTE PERCENT MAN 2 % (0-0); NEUTROPHILS ABSOLUTE MAN 53.47 K/mm3 (1.96-9.15); SEG NEUTROPHILS PERCENT MAN 57 % (41-73); TOTAL CELLS COUNTED 200
[2021-09-16 16:18] LABS: Influenza A, PCR NEGATIVE (NEGATIVE); Influenza B, PCR NEGATIVE (NEGATIVE); Resp Syncytial Virus, PCR NEGATIVE (NEGATIVE); SARS-Cov-2 (COVID-19) PCR, MMC NEGATIVE (NEGATIVE)
[2021-09-16 16:21] LABS: Bacteria Mod /hpf; Red Blood Cells, Urine TNTC /hpf (0-2); Renal Epithelial Rare /hpf (0-Rare); Squamous Epithelial Cells Few /hpf (Few)
[2021-09-16 16:22] LABS: Mucus Light (0-Heavy)
[2021-09-16 18:19] LABS: Creatine Kinase MB 1.9 ng/mL (0.0-3.6); Creatine Kinase MB Index 4.4 (0.0-4.0)
[2021-09-16 21:01] LABS: Bun/Creatinine Ratio 66.9 (12.0-20.0); Calcium, Blood 8.9 mg/dL (8.5-10.1); Creatinine, Blood 0.58 mg/dL (0.60-1.20)
[2021-09-17 01:40] LABS: Bun/Creatinine Ratio 58.6 (12.0-20.0); Calcium, Blood 8.5 mg/dL (8.5-10.1); Creatinine, Blood 0.65 mg/dL (0.60-1.20); Potassium, Blood 4.9 mmol/L (3.5-5.5)
--- NOTE | 2021-09-17 02:47 | NUR ---
DEEP SUCTIONING/SPUTUM CULTURE PATIENT WAS GURGLING IN BIPAP MASK WITH FREQUENT COUGHING. MASK REMOVED FROM PATIENT AND SUCTIONED ORALLY WITH LARGE AMOUNTS OF SECRETIONS REMOVED. GURGLING PERSISTED. CALL MADE TO RT AND ORDER PLACED FOR NASAL TRACHEAL SUCTIONING AND BREATHING TREATMENT GIVEN PER RT NOTES. PATIENT NO LONGER HAS GURGLING OR COUGHING. CALL LIGHT IN REACH.
[2021-09-17 05:19] LABS: Hematocrit 30.2 % (37.0-53.0); Hemoglobin 10.9 g/dL (13.5-17.5); Mean Corpuscular HGB 33.7 pg (26.0-34.0); Mean Corpuscular HGB Conc 36.1 g/dL (31.5-36.5); Mean Corpuscular Volume 94 fL (80-100); Mean Platelet Volume 10.5 fL (9.1-12.4); Platelet Count 243 K/mm3 (150-400); RDW Coefficient Variation 14.6 % (11.7-14.2); RDW Standard Deviation 49.7 fL (35.1-46.3); Red Blood Cell Count 3.23 M/mm3 (4.30-5.90)
[2021-09-17 05:22] LABS: White Blood Cell Count 54.76 K/mm3 (4.00-11.30)
[2021-09-17 05:48] LABS: Albumin, Blood 2.3 g/dL (3.4-5.0); Albumin/Globulin Ratio 0.6 (0.8-1.8); Bilirubin, Total 0.4 mg/dL (0.1-1.0); Bun/Creatinine Ratio 58.4 (12.0-20.0); Calcium, Blood 8.7 mg/dL (8.5-10.1); Creatinine, Blood 0.65 mg/dL (0.60-1.20); Magnesium, Blood 2.1 mg/dL (1.6-2.4); Potassium, Blood 4.8 mmol/L (3.5-5.5); Total Protein, Blood 6.3 g/dL (6.4-8.2)
[2021-09-17 06:22] LABS: BAND PERCENT MAN 22 % (0-8); BASOPHILS PERCENT MAN 0 % (0-2); EOSINOPHILS PERCENT MAN 0 % (0-6); LYMPHOCYTES ABSOLUTE MAN 1.64 K/mm3 (0.84-5.20); LYMPHOCYTES PERCENT MAN 3 % (21-46); MONOCYTES ABSOLUTE MAN 1.64 K/mm3 (0.16-1.47); MONOCYTES PERCENT MAN 3 % (4-13); MYELOCYTE ABSOLUTE MAN 0.54 K/mm3 (0.00-0.00); MYELOCYTE PERCENT MAN 1 % (0-0); NEUTROPHILS ABSOLUTE MAN 50.92 K/mm3 (1.96-9.15); SEG NEUTROPHILS PERCENT MAN 71 % (41-73); TOTAL CELLS COUNTED 100
--- NOTE | 2021-09-17 06:54 | NUR ---
SHIFT SUMMARY PATIENT SLEPT T/O SHIFT. TEMP INCREASED TO 100.1F. TYLENOL 650MG PT X 1 ADMINISTERED. PATIENT C/O PAIN AT BEGINNING OF SHIFT-PERCOCET 5/325MG PT GIVEN X 1. STEELE PATENT AND DRAINED 1050ML URINE OUT. SPUTUM CULTURE SENT AFTER NT SUCTION-SEE SUCTION NOTE. PATIENT REMAINED IN AFIB WITH RATE 100'S. NO OTHER CHANGES DURING SHIFT. REPORT GIVEN TO MARY PATEL
--- NOTE | 2021-09-17 07:06 | NUR ---
Received report from Telma HERNANDEZ. Patient is resting on BIPAP 12/6 40% and sats 95%. He arouses to verbal stimuli and falls back to sleep. He has 20ga PowerGlide to COLLIN and is infusing NS TKO, he also has 20ga IV to LAC and 20ga IV to RH both flushed and SL'd. He has 16Fr temp ramos draining to gravity and temp 100.0. He is in A-Fib rates low 100's and systolics 120's and MAP >65. Bilateral LE 3 + edema and bed bound at baseline.
--- NOTE | 2021-09-17 07:32 | NUR ---
Received report from Telma HERNANDEZ. patient sleeping on BIPAP when getting report /6 30% and sats 95% and shortly after pulled of and placed on 2L O2 via NC and sats 97%. He is alert to verbal stimuli and is able to communicate his needs. He is incontinent at times and has attends in place, but mostly will call when needing urinal. he has 20ga PowerGlide to COLLIN and is infusing Octreotide at 50 mcg/hr. Plan for possible paracentesis today. Pitting edema thighs up. Abdomen large, and firm. MAEW but weak.
--- NOTE | 2021-09-17 10:02 | NUR ---
Patient has had alot of family at [facility]. Dr's have been by to assess and will be writing new orders. Med throuigh PEG and flushed and well as IV meds infusing. He is on 3L O2 via NC and sats 90%. ECHO being done. VSS
--- NOTE | 2021-09-17 12:30 | NUR ---
Patient has been resting with family at bedside. No significant changes. VSS. He remains on 3L O2 via NC.
--- NOTE | 2021-09-17 14:50 | NUR ---
Placed patient back on BIPAP 01/30 40% sats 93%. Medicated for pain per request of patient 08/04. Vela patent and draining. remains at bedside. medicated through patent PEG tube.
--- NOTE | 2021-09-17 17:36 | NUR ---
Patient received full bed bath and linen change. He assisted with turning. He is able to answer simple question in soft voice and is hard to understand at times. He continuesd to c/o of some pain and too early and he requested some xanax per MAR. He remains on BIPAO 01/30 at 40% and sats 94%. Vela draing to gravity yellow urine 800 ml's out and 350 IV in. Placed coccyx dressing post bath. Patient has been sleeping with little interaction most of shift. Changed peg tube dressing.
--- NOTE | 2021-09-17 20:45 | NUR ---
RECEIVED BEDSIDE REPORT FROM AMANDA Moss PT W BIPAP IN PLACE 01/30 FIO2 40%, SATS MID 90'S. MASK REMOVED FOR ORAL CARE & ASSESSMENT, PT W SOFT VOICE & SLOW RESPONSE, BUT ABLE TO COMMUNICATE NEEDS. PT KNOWS MONTH & PLACE, STATES HE WAS USING A WALKER THREE WEEKS AGO. COMPLAINS OF PAIN TO R HIP AND WHEN TOLD HE WILL BE MED W PERCOCET, HE ASKS IF HE CAN HAVE XANAX ALSO. ABLE TO MOVE ARMS WEAKLY, BUT BOTH LOWER LEGS W 3+ EDEMA AND COOL TO TOUCH, NO SPONTANEOUS MVMT. PLACED BACK ON BIPAP AFTER ORAL CARE & SKIN CARE & REPOSITIONING.
--- NOTE | 2021-09-18 01:20 | NUR ---
PT DESAT TO 87-88% WHILE ON BIPAP, FI02 40%. RESPS NOTED W 'GURGLE', MASK REMOVED & PT ABLE TO COUGH ON COMMAND. SXN FOR MOD YELLOW SECRETIONS & BIPAP MASK REPLACED. PT HAS BEEN VERY RELAXED & RESTING SOUNDLY SINCE MED W PERCOCET.
[2021-09-18 03:48] LABS: Base Excess Venous 3.6 mmol/L; Bicarbonate Venous 27.4 mmol/L (24.0-30.0); PCO2 Venous 38.8 mmHg (38-42); pH Blood Venous 7.46 (7.34-7.37)
--- NOTE | 2021-09-18 04:07 | NUR ---
AM LABS DRAWN, ORAL CARE & SXN W INDUCED COUGH, MINIMAL TO MODERATE SECRETIONS, BUT CONTINUTES W 'GURGLE' DESPITE SXN. REPOSTIONED TO L SIDE & HOB ELEVATED >30 DEGREES. RESPONDS TO QUESTIONS, DOES NOT INITIATE CONVERSATION. VSS, CONT IN AFIB W RATE GREATER THAT 110, NO ECTOPY. CONT W LOW GRADE TEMP.
[2021-09-18 04:11] LABS: Hematocrit 29.8 % (37.0-53.0); Hemoglobin 10.5 g/dL (13.5-17.5); Mean Corpuscular HGB 33.3 pg (26.0-34.0); Mean Corpuscular HGB Conc 35.2 g/dL (31.5-36.5); Mean Corpuscular Volume 95 fL (80-100); Mean Platelet Volume 10.3 fL (9.1-12.4); Platelet Count 266 K/mm3 (150-400); RDW Coefficient Variation 15.1 % (11.7-14.2); RDW Standard Deviation 51.7 fL (35.1-46.3); Red Blood Cell Count 3.15 M/mm3 (4.30-5.90); White Blood Cell Count 46.16 K/mm3 (4.00-11.30)
[2021-09-18 04:14] LABS: Albumin, Blood 2.3 g/dL (3.4-5.0); Albumin/Globulin Ratio 0.6 (0.8-1.8); Bilirubin, Total 0.4 mg/dL (0.1-1.0); Bun/Creatinine Ratio 54.1 (12.0-20.0); Calcium, Blood 8.8 mg/dL (8.5-10.1); Creatinine, Blood 0.8 mg/dL (0.60-1.20); Globulin, Blood 3.9 g/dL (2.2-4.0); Potassium, Blood 4.4 mmol/L (3.5-5.5); Total Protein, Blood 6.2 g/dL (6.4-8.2)
[2021-09-18 04:39] LABS: BAND PERCENT MAN 9 % (0-8); BASOPHILS PERCENT MAN 0 % (0-2); EOSINOPHILS ABSOLUTE MAN 0.92 K/mm3 (0.00-0.68); EOSINOPHILS PERCENT MAN 2 % (0-6); LYMPHOCYTES ABSOLUTE MAN 0.46 K/mm3 (0.84-5.20); LYMPHOCYTES PERCENT MAN 1 % (21-46); MONOCYTES ABSOLUTE MAN 0.46 K/mm3 (0.16-1.47); MONOCYTES PERCENT MAN 1 % (4-13); MYELOCYTE ABSOLUTE MAN 0.46 K/mm3 (0.00-0.00); MYELOCYTE PERCENT MAN 1 % (0-0); NEUTROPHILS ABSOLUTE MAN 43.85 K/mm3 (1.96-9.15); SEG NEUTROPHILS PERCENT MAN 86 % (41-73); TOTAL CELLS COUNTED 100
--- NOTE | 2021-09-18 06:15 | NUR ---
CONT W BIPAP IN PLACE. POOR COUGH EFFORT, EVEN W DEEP ORAL SXN. HOB ELEVATED. CONT AFIB, AND OCCAS PVC'S NOTED, LOW GRADE FEVER. PT IS UNABLE TO ASSIST W TURNS OR OTHER PERSONAL CARE.
--- NOTE | 2021-09-18 07:30 | NUR ---
ASSUMED CARE OF CARISSA AT 0700, WEARING BIPAP 01/30 40%. ASKING FOR THE MASK OFF TO HAVE HIS TEETH. MASK REMOVED, TEETH PLACED, VERY LOOSE, DAUGHTER HERE, ASKING TO BRING IN HIS PASTE. HE HAS EXP.RHONCHI T/O ALL LOBES, SATS MID 90'S ON BIPAP. PT WITH PEG TUBE CLAMPED, STEELE TO GRAVITY DRAINAGE. BILAT LOWER EXT EDEMA TO HIPS, 3+, FAINT PULSES. SKIN HOT TO THE TOUCH, CLAMMY. PT ASKED FOR FAN. PT TURNED AND REPOSITIONED WITH MUCH PAIN.
[2021-09-18 08:26] LABS: Vancomycin, Trough 34.3 ug/mL (5.0-10.0)
--- NOTE | 2021-09-18 08:30 | NUR ---
IN TO SEE PATIENT, TALKING WITH HER. PT'S NEEDS ADDRESSED. ORDERS RECEIVED.
--- NOTE | 2021-09-18 11:49 | NUR ---
FAMILY IN WITH PATIENT, DAUGHTER AND SON HERE, NOW AND HER CHILDREN. AIRLINE ATTENDANT AND DIETARY HAVE BEEN IN TO DISCUSS CARE, PT IS LEANING TOWARDS HOSPICE CARE. HE IS HAPPY AND ENGAGING, WORKING ON HIS COUGH, USING THE SUCTION ON HIS OWN, FAMILY EDUCATED. DIETARY IN TO SPEAK WITH PATIENT, TAKING IN SOME SODA FROM THE , SAYS HE TAKES IN FLUIDS AT HOME.
--- NOTE | 2021-09-18 13:27 | NUR ---
PT HAS HAD VISITS WITH BOTH PALLIATIVE CARE AND CASE MANAGEMENT, HE AND HAVE DECIDED TO CONTINUE CARE IS, BUT TO BE DISCHARGED TO HOSPICE. HE IS READY TO BE COMFORTABLE. HE IS MEDICATED FOR C/O PAIN AND IS NOW RESTING QUIETLY.
--- NOTE | 2021-09-18 13:40 | NUR ---
Spiritual care visit conducted. Pt is lying in bed and spouse, Margi, is bedside. His son and dtr join us later in the visit. Margi immediately becomes tearful and shares about the decision to be DNR and that he was only trying to fight through cancer and Parkinson's for her and she told him, this am., that she was releasing him from the efforts on her behalf. They are all in agreement that the suffering should not be prolonged. When the son and dtr entered the they immediately asked me to say a prayer, which I gladly provide. Pt then states that the prayer was in alignment with his [employer] belief system. We explore the benefits of hospice, and discuss . I normalize their experience, encourage self-care for Margi, reinforce what is meaningful and provide prayer. Pt and family responds well and show signs of reduced worry. I will continue to remain available to patient and family.
--- NOTE | 2021-09-18 14:31 | NUR ---
CARISSA BEGAN HAVING SATS IN THE MID 80S, IN TALKING WITH HIM, HE WAS PERSUADED TO PUT ON THE BIPAP 01/30 40%. HE IS RESTING NOW, BY HIS SIDE, SATS 94%. HIS ENTHUSIASM AND ZEST SEEMS TO BE WANING FROM EARLIER THIS AM. HE DID GET HIS TUBEFEEDING AND FLUIDS VIA G-TUBE AND PAIN MEDICATION.
--- NOTE | 2021-09-18 14:50 | NUR ---
Met with pt along with his , and 2 of their adult children. Pt was lying in bed, had just been given prn percocet for 6/10 back pain. He is alert, oriented, pleasant and cooperative with care. 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 Between them, they have adequate medical literacy. The pt has decided he would like to go home with hospice, as he states he would like to focus on specifically on pain control and comfort. His is agreeable to this, but she did want to be sure, and asked several times during our visit if he could change his mind at any point and revoke hospice if he decided to. I reassured her that he in fact could revoke hospice if his condition improved. New POLST filled out, pt is DNR with comfort only. Awaiting MD signature. Discharge planning in place, as pt was with [facility]. Plan at this time is to transition to [facility].
--- NOTE | 2021-09-18 16:08 | NUR ---
PT ASKED TO HAVE HIS MASK OFF, HAS A VISITOR IN WITH HIS . HE LOOKS WEARY. O2 VIA NC @ 6L.
--- NOTE | 2021-09-18 17:40 | NUR ---
CARISSA'S WORK OF BREATHING HAS VARIED T/O THE DAY. HE HAS BEEN ON BIPAP 12/6 40% AND ON 6L NC. HIS RHYTHM IS AFIB W/ PVC'S, HIS PVC'S INCREASE, DOES HIS RATE WHEN HE IS ON THE NC. HIS LUNGS HAVE BEEN RHONCHI T/O AND IS GETTING MORE GURGLING THE DAY HAS GONE ON. HE CURRENTLY IS ON BIPAP, HE CONTINUES WITH 3-4+ PITTING EDEMA FROM THE HIPS DOWN, HIS LASIX WAS JUST INCREASED TO 80MG BID WITH ONLY 500ML OUT THIS SHIFT. HE HAS BEEN FED JEVITY 1.5 X2 WITH WATER. MEDS THROUGH PEG TUBE. HE HAS BEEN ENGAGING WITH HIS FAMILY T/O THE DAY, HE IS LESS ALERT AND CONVERSIVE NOW THAN PRE-LUNCH. HIS TRIED GIVING HIM SIPS OF COLA AND SOME ICE CREAM. HE WAS VERY HAPPY, ALTHOUGH HE SOUNDS MORE WET NOW THAN EARLIER. PALLIATIVE CARE AND CASE MANAGEMENT SPENT A GREAT DEAL OF TIME WITH PATIENT AND TODAY DISCUSSING NEXT PHASES. PT PLANS TO GO TO HOSPICE. HOSPICE BED AVAILABLE BY END OF THE WEEK.
--- NOTE | 2021-09-18 20:00 | NUR ---
ASSUMED CARE. RT JUST PLACED PT ON BIPAP WITH FIO2 40%, SATS MID 90'S. PT WITH SOFT VOICE, FATIQUED, FRAIL APPEARING. STATES HE JUST WANTS TO BE MADE COMFORTABLE SO HE CAN SLEEP TONIGHT. REQUEST NOT TO BE MESSED WITH IF POSSIBLE. DISCUSSED PLAN OF CARE FOR TONIGHT. LS WITH COARSE RHONCI, RT ALREADY DID DEEP SUCTION, COUGH IS NON-PRODUCTIVE. TACHY ON MONITOR LOW 100'S. BP STABLE. FAMILY JUST ARRIVED AND PLANS TO VISIT FOR SHORT PERIOD AND THEN WILL LEAVE. [place] [facility] CALL LIGHT IS IN REACH.
[2021-09-19 04:53] LABS: Alanine Aminotransfer (ALT/SGP 8 U/L (12-78); Albumin, Blood 2.1 g/dL (3.4-5.0); Albumin/Globulin Ratio 0.5 (0.8-1.8); Alk Phos 136 U/L (50-136); Anion Gap 12 mmol/L (6-16); Aspartate Aminotrans (AST/SGOT 23 U/L (12-37); Bilirubin, Total 0.6 mg/dL (0.1-1.0); Blood Urea Nitrogen 47 mg/dL (8-24); Bun/Creatinine Ratio 50.4 (12.0-20.0); CO2, Blood 27 mmol/L (21-32); Calcium, Blood 8.6 mg/dL (8.5-10.1); Chloride, Blood 87 mmol/L (98-108); Creatinine, Blood 0.93 mg/dL (0.60-1.20); Globulin, Blood 3.9 g/dL (2.2-4.0); Glomerular Filtration Rate 85 (60-); Glucose, Blood 127 mg/dL (70-99); Magnesium, Blood 2.4 mg/dL (1.6-2.4); Phosphorus, Blood 4.1 mg/dL (2.5-4.9); Potassium, Blood 4.2 mmol/L (3.5-5.5); Prealbumin, Blood 15.9 mg/dL (20.0-40.0); Sodium, Blood 126 mmol/L (136-145); Vancomycin, Random 26.7 ug/mL
--- NOTE | 2021-09-19 06:10 | NUR ---
SHIFT SUMMARY: CARISSA HAS REMAINED ON BIPAP / FIO2 OF 40% ALL NIGHT, RECEIVED 1 ROUND OF PERCUSSION VEST. ABLE TO ANSWER QUESTIONS AND MAKE NEEDS KNOWN. VERY WEAK IN ALL EXTREMITIES, ONLY MOVING WHEN HE ABSOLUTLEY NEEDS TO. LS RHONCI T/O, WEAK COUGH, RT DEEP SUCTIONED SEVERAL TIMES WITH SMALL AMOUNTS OF SECRETIONS. COUGH IS GURGLING. LIGIA RN WHEN DOING ORAL CARE NOTED A GROWTH IN GUM LINE VS SORE. SEE PIC IN CHART. AFIB ON THE MONITOR WITH RATE LOW 100'S. CONTINUES TO HAVE 3-4+ EDEMA FRIM LOWER BACK TO TOES, PITTING. ONLY 450CC OF DARK URINE OUTPUT. FEBRILE 99 THIS SHIFT. LETHARGIC MOST OF SHIFT. ABD SOFT ROUND, HYPOACTIVE BT. PEG TUBE FLUSHED, AND MEDS GIVEN THROUGH IT. PAIN MED WAS GIVEN ONCE. NO OTHER CHANGES TO NOTE. WILL REPORT TO DAYSHIFT.
--- NOTE | 2021-09-19 10:59 | NUR ---
Pt is going home with [facility] today. Family is supportive, and pt has stated very clearly he is ready to go home. Initially pt's was not accepting of the plan; she began to cry when Dr. Julien explained that the pt is not improving with antibiotics, and his overall condition has deteriorated significantly since yesterday. He is requiring increasing amounts of oxygen as the diuretics are minimally effective for him. The patient has clearly stated he is ready to go home, and he understands his health is declining rapidly. MARY Colindreskitchen and counter worker is working on the discharge plan. Comfort Care orders placed, antibiotics DC'd. Discharge is tentatively scheduled for 1600 today.
--- NOTE | 2021-09-19 11:03 | NUR ---
FAMILY MEETING AT BEDSIDE. PT TO TRANSITION TO COMFORT CARE AND BE DISCHARGED HOME WITH [facility] AT 1600.
[2021-09-19] MEDS ORDERED: Promod946 ML PO (12:57)
[2021-09-19] MEDS ORDERED: BUME2 PO (12:58)
--- NOTE | 2021-09-19 15:58 | NUR ---
Spiritual care visit conducted. Pt is minimally responsive. Family is bedside and explain that he will d/c on hospice soon. I provide therapeutic listening, anticipatory grief support and a calming presence. Family appear to be comforted by the visit.
--- NOTE | 2021-09-19 16:19 | NUR ---
PT DISCHARGED TO [facility] VIA AMBULANCE. IVS AND POWERGLIDE REMOVED. PT'S DAUGHTER TO RIDE IN AMBULANCE WITH PT. PT'S BELONGING BAG INCLUDING HIS DENTURES SENT ON GURNEY WITH PT. PT MEDICATED FOR COMFORT PRIOR TO DEPARTURE.
== END 2021-09-19 16:17 | disposition home or self-care (01) | DRG 871 ==
LOC: ER 13:40 → ICUW 17:56
PROVIDERS: Family Medicine; Nurse Practitioner Acute Care; Student in an Organized Health Care Education/Training Program; ADMIT Internal Medicine
PROC: 3E03329 Introduction of Other Anti-infective into Peripheral Vein, Percutaneous Approach (ICD-10-PCS; principal; 2021-09-16)
PROC: 5A09357 Assistance with Respiratory Ventilation, Less than 24 Consecutive Hours, Continuous Positive Airway Pressure (ICD-10-PCS; 2021-09-16)
DX: A41.9 Sepsis, unspecified organism (principal); G92.8 Other toxic encephalopathy; J18.9 Pneumonia, unspecified organism; J96.21 Acute and chronic respiratory failure with hypoxia; T83.511A Infection and inflammatory reaction due to indwelling urethral catheter, initial encounter; E87.1 Hypo-osmolality and hyponatremia; N39.0 Urinary tract infection, site not specified; I48.20 Chronic atrial fibrillation, unspecified; D84.9 Immunodeficiency, unspecified; Z66 Do not resuscitate; Z51.5 Encounter for palliative care; Z20.822 Contact with and (suspected) exposure to COVID-19; R65.20 Severe sepsis without septic shock; F41.9 Anxiety disorder, unspecified; I50.9 Heart failure, unspecified; R62.7 Adult failure to thrive; F95.9 Tic disorder, unspecified; G20 Parkinson's disease; G25.81 Restless legs syndrome; E87.70 Fluid overload, unspecified; K21.9 Gastro-esophageal reflux disease without esophagitis; I11.0 Hypertensive heart disease with heart failure; R33.9 Retention of urine, unspecified; F32.A Depression, unspecified; M19.90 Unspecified osteoarthritis, unspecified site; F90.9 Attention-deficit hyperactivity disorder, unspecified type; E87.5 Hyperkalemia; Z87.891 Personal history of nicotine dependence; Z85.830 Personal history of malignant neoplasm of bone; Z98.890 Other specified postprocedural states; Z88.8 Allergy status to other drugs, medicaments and biological substances; Z79.899 Other long term (current) drug therapy; Z90.49 Acquired absence of other specified parts of digestive tract; Z79.01 Long term (current) use of anticoagulants; Z93.1 Gastrostomy status; Z68.29 Body mass index [BMI] 29.0-29.9, adult; Y83.8 Other surgical procedures as the cause of abnormal reaction of the patient, or of later complication, without mention of misadventure at the time of the procedure
CPT/HCPCS: 0241U; 36415; 36600; 51702; 71045; 80048; 80053; 80202; 81001; 82140; 82533; 82550; 82553; 82570; 82803; 83605; 83735; 83880; 83930; 84100; 84134; 84145; 84295; 84300; 84443; 84484; 85025; 87040; 87070; 87077; 87086; 87186; 87205; 87449; 93005; 93010; 93306; 94640; 94660; 94664; 94667; 94668; 94762; 96365-59; 96366-59; 96367-59; 96375-59; 96376-59; 99285-25; A9270; C1751; J0456; J0696; J1170; J1720; J1940; J2543; J2930; J3370; J7040; J7050; J7060